=== PATIENT | female | born 1965 | race Caucasian/White ===

== ENCOUNTER 2025-08-07 08:54 | Emergency (ER) | payer BC, SELFPAY ==
[2025-08-07 09:03] VITALS: BP 166/81
[2025-08-07 09:46] LABS: Hematocrit 42.3 % (37.0-47.0); Hemoglobin 14.2 g/dL (12.0-16.0); Mean Corp Hgb Conc. 33.6 g/dL (33.0-37.0); Mean Corpuscular Volume 88.1 fL (81.0-99.0); Nucleated Red Blood Cells % 0 %; Platelet Count 182 10^3/uL (130-400); Red Cell Dist. Width 12.2 % (11.5-14.5)
[2025-08-07 10:20] LABS: ALT (SGPT) 22 U/L (0-35); AST (SGOT) 29 U/L (14-36); Albumin 4.7 g/dl (3.5-5.0); Alkaline Phosphatase 72 U/L (38-126); Blood Urea Nitrogen 16 mg/dl (7-17); Calcium 9.5 mg/dl (8.4-10.2); Carbon Dioxide 28 mmol/L (22-30); Chloride 104 mmol/L (98-107); Glucose 96 mg/dl (70-99); Potassium 4.1 mmol/L (3.5-5.1); Sodium 139 mmol/L (135-145); Total Protein 7.5 g/dl (6.3-8.2); eGFR > 60.00
[2025-08-07 10:25] VITALS: BP 157/71
[2025-08-07 10:30] LABS: Troponin I < 0.012 ng/ml
--- NOTE | 2025-08-07 10:38 | ED.GENMED ---
History of Present Illness
General
Chief Complaint: Chest Pain
Source: patient
Exam Limitations: none
Time Seen by Provider: 08/07/25 10:29
Nursing documentation reviewed up to this point in time: agreed with
History of Present Illness
History of Present Illness:
60-year-old female presents to the ER for evaluation. She reports for the past 1-1/2 weeks she has not felt herself. She has had intermittent chills. She thought she was getting a virus. She is mild runny nose but no cough. She has had some
intermittent chest pressure and pains in both upper arms. This is not associate with exertion. In fact she exercised the other day and was fine. She denies any shortness of breath. Very minimal burning with urination off and on. Denies any
abdominal pain. Patient has seen a workers compensation defense attorney at [facility] last saw him in April. She has no cardiac history however with family history she decided to see a workers compensation defense attorney. She does not believe she ever had a stress test or echo.
Phy Exam
General Physical Exam
General Presentation: no apparent distress
General age: appears stated age
General Skin: warm and dry
General Habitus: normal
General Mental: alert
General Hydration: appears well hydrated
Cardiovascular Exam
Cardiovascular Exam: regular rate/rhythm, no murmur and normal peripheral pulses
Pulmonary Exam
Pulmonary Exam: lungs clear and no respiratory distress
Neurological Exam
Neurological Exam: alert and oriented x3
Musculoskeletal Exam
Musculoskeletal Exam: full ROM
Skin Exam
Skin Exam: normal color and warm/dry
Psychiatric Exam
Psychiatric Exam: normal mood/affect
Scores
Heart Score for Chest Pain Patients
STEMI patient?: Not applicable
Course
Orders/Labs/Results
Orders:
Orders
08/07/25 09:06
EKG [Electrocardiogram (*1)] Urgent
Reason for Study: Chest Pain
EKG- Treatment ONCE
08/07/25 09:33
Complete Blood Count/With Diff Urgent
Comprehensive Metabolic Panel Urgent
TSH Reflex To Free T4 Urgent
Comment: ADD ON
Troponin I Urgent
08/07/25 10:42
COVID-19 Antigen Urgent
Source: Nasal Swab
Influenza A+B Rapid Molecular Urgent
HUMBERTO Source: Nasal Swab
Specimen Description:
08/07/25 12:02
CR Chest - 2 Views Urgent
Comment:
Reason For Exam: cp
08/07/25 12:45
Add On- LAB Urgent
Tests Added?: tsh with reflexive t4
08/07/25 12:48
UA Reflex to Culture [Urinalysis Reflex To Culture] Urgent
Date Specimen was Collected: 08/07/25
Time Specimen was Collected: 12:47
Urine Microscopic Reflex Cult Urgent
Abnormal Lab Results
08/07/25
12:48
Urine Ketones 3+ A
(Negative)
Ur Occult Blood Reflex 4+ A
(Negative)
Urine RBC 7-10 A /HPF
(0-2)
Urine Bacteria (Reflex) Few A
(Negative)
08/07/25 09:33
08/07/25 09:33
Vital Signs
Initial and Last Documented VS:
Initial Vital Signs
Temp Pulse Resp BP Pulse Ox
98.2 F 71 16 166/81 100
08/07/25 09:03 08/07/25 09:03 08/07/25 09:03 08/07/25 09:03 08/07/25 09:03
Last Documented Vital Signs
Temp Pulse Resp BP Pulse Ox
97.9 F 73 16 157/71 100
08/07/25 10:38 08/07/25 11:00 08/07/25 11:00 08/07/25 10:25 08/07/25 11:00
MDM/Problems Addressed
Differential Diagnosis Includes:
Not limited to ACS, anemia, viral syndrome, infection
MDM/Problems Addressed:
No clear cause of patient's symptoms. She is asymptomatic here in the ER and well-appearing EKG unremarkable cardiac troponin unremarkable there is a trace amount of blood in the urine but no evidence of infection. Patient primarily complains of
feeling cold felt like she was under the weather and just did not feel right. She has remained asymptomatic here in the ER she is afebrile with a normal white count COVID flu are negative chest x-ray negative. Will DC with outpatient follow-up
with family doctor for reevaluation of symptoms as well as repeat urinalysis since there was small amount of blood in addition will have her follow-up with [facility]
*Radiology
Radiology exam reviewed: radiology read reviewed
*Pulse Oximetry
SaO2: 99
Oxygen Mode of Delivery: Room air
Patient hypoxic: no
*EKG
Interpreted by ED Provider?: Yes
Heart Rate: 70
Rate: normal
Rhythm: sinus
Ischemia: no ischemia
*Critical Care Note
Total Time (30-74mins, 75-104mins- exclusive of procedures): Not Applicable
ED Attending Note
-
Portions of this chart may have been created with voice recognition software.� Occasional wrong word or��sound alike� substitutions may have occurred due to the inherent limitations of voice recognition software.
Discharge Plan
Departure
Patient Disposition: Home (Routine Discharge)
Date of Disposition: 08/07/25
Time of Disposition: 13:41
Patient with high blood pressure during this ER visit?: Yes
Condition: Fair
Covid-19: Not Applicable
Discharge Problem:
Chest pain
Instructions: Chest Pain NON-[facility] [employer] Specialist Follow Up
Referrals:
Yudith Calderón MD [Family Provider, Internal Medicine]
Activity Restrictions/Additional Instructions:
As discussed please follow-up with cardiology at [facility] for reevaluation. call today to make an appointment as soon as possible.
In addition please follow-up with family doctor for repeat urinalysis as your urine had small amount of red blood cells. Return if any worsening of symptoms
Interventions
Interventions:
*Risk Screen - Suicide Last Done: 08/07/25 09:03
*General Assessment Last Done: 08/07/25 10:29
*Neglect/Abuse Screening Last Done: 08/07/25 09:03
*ED- Fall Risk Assessment Last Done: 08/07/25 11:06
*ED COVID-19 Vaccine History Last Done: 08/07/25 10:29
*ED Influenza Vaccine History Last Done: 08/07/25 11:06
ED- Cardiac Assessment Last Done: 08/07/25 10:29
Discharge Date and Time
Print Language: PALESTINIAN
[2025-08-07 11:18] LABS: COVID-19 Antigen Negative (Negative)
[2025-08-07 13:01] LABS: Urine Character Clear (Clear)
[2025-08-07 13:11] LABS: Urine White Cell 0-2 /HPF (0-5)
== END 2025-08-07 14:11 | disposition home or self-care (01) ==
LOC: EMR 08:54
PROVIDERS: Emergency Medicine; Nurse Practitioner; EMERGENCY PHYSICIAN Emergency Medicine; FAMILY PHYSICIAN Internal Medicine
DX: R07.9 Chest pain, unspecified (principal); R03.0 Elevated blood-pressure reading, without diagnosis of hypertension; Z82.49 Family history of ischemic heart disease and other diseases of the circulatory system
CPT/HCPCS: 99284; 71046; 80053; 81003; 81015; 84443; 84484; 85025; 87502; 87811; 93005